=== PATIENT | female | born 1995 | race African-American/Black ===

== ENCOUNTER 2020-02-26 12:05 | Emergency (ER) | payer OTHER ==
[2020-02-26] MEDS ORDERED: Proparacaine 0.5% Ophth Soln 15 ML Bottle EYERT PRN (12:28)
[2020-02-26] MEDS ORDERED: Fluorescein 1 MG Ophth Strip EYERT ONE (12:28)
--- NOTE | 2020-02-26 12:28 | EDM.PDOC ---
ED HPI GENERAL MEDICAL PROBLEM - General Chief Complaint: General Stated Complaint: POSSIBLE CONCUSSION;BLURRED VISION Time Seen by Provider: 02/26/20 12:15 Source of Information: Reports: Patient History Limitations: Reports: No Limitations - History of Present Illness INITIAL COMMENTS - FREE TEXT/NARRATIVE: Patient comes emergency department today with concerns of a concussion and blurry vision. 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 She did not get knocked out. It struck her right on the right eye. She had some blurry vision to the right eye last night. As well as a mild headache. This morning when she got up she noticed again she had some blurry vision primarily of the right eye and none of the left eye. She has photophobia without phonophobia. Mild headache. Nausea without vomiting. No weakness dizziness lightheadedness. No vertigo or dizziness. No palpitations syncope. No chest pain or shortness of breath or difficulty breathing. No cough or congestion. No abdominal pain. No hematuria dysuria or urinary frequency. No paresthesias of her upper or lower extremities. No change in the functionality of her upper or lower extremities. No confusion or thought process change. No double vision. NO COVID expsoure no COVID symptoms. Headache Pain Score (Numeric/FACES): 5 - Related Data Allergies Allergy/AdvReac Type Severity Reaction Status Date / Time No Known Allergies Allergy Verified 02/26/20 12:26 Home Meds: Home Meds Ciprofloxacin [Ciloxan 0.3% Ophth Soln] 2 drop EYERT Q4H #1 bottle 02/26/20 [Rx] Past Medical History - Past Health History Medical/Surgical History: Denies Medical/Surgical History ED ROS GENERAL - Review of Systems Review Of Systems: Comprehensive ROS is negative, except as noted in HPI. ED EXAM, GENERAL - Physical Exam Exam: See Below Free Text/Narrative:: She is wearing sun glasses in the room when I enter. Appears in no acute distress. Exam Limited By: No Limitations General Appearance: Alert, WD/WN, No Apparent Distress Eye Exam: Bilateral Eye: EOMI, Normal Fundi, Normal Inspection, PERRL Ears: Normal External Exam, Normal TMs Nose: Normal Inspection, Normal Mucosa, No Blood Throat/Mouth: Normal Inspection, Normal Lips, Normal Voice Head: Atraumatic, Normocephalic. No: Facial Swelling, Facial Tenderness, Sinus Tenderness Neck: Normal Inspection, Supple, Non-Tender Respiratory/Chest: No Respiratory Distress, Lungs Clear, Normal Breath Sounds Cardiovascular: Normal Peripheral Pulses, Regular Rate, Rhythm GI/Abdominal: Normal Bowel Sounds, Soft, Non-Tender Back Exam: Normal Inspection Extremities: Normal Inspection, Normal Range of Motion, No Pedal Edema, Normal Capillary Refill Neurological: Alert, Oriented, CN II-XII Intact, Normal Cognition, Normal Gait, No Motor/Sensory Deficits Psychiatric: Normal Affect, Normal Mood Skin Exam: Warm, Dry, Intact, Normal Color, No Rash Course - Vital Signs Last Recorded V/S: Last Vital Signs Temp 97.9 F 02/26/20 12:10 Pulse 60 02/26/20 12:10 Resp 18 02/26/20 12:10 BP 127/62 02/26/20 12:10 Pulse Ox 99 02/26/20 12:10 - Orders/Labs/Meds Meds: Medications Discontinued Medications Generic Name Dose Route Start Last Admin Trade Name Paola PRN Reason Stop Dose Admin Fluorescein Sodium 1 mg 02/26/20 12:28 02/26/20 12:35 Ful-Thao EYERT 02/26/20 12:29 1 mg ONETIME ONE Administration Proparacaine HCl 1 ml 02/26/20 12:28 02/26/20 12:35 Proparacaine 0.5% Ophth Soln EYERT 1 drop ASDIRECTED PRN Administration Other - Re-Assessments/Exams Free Text/Narrative Re-Assessment/Exam: 02/26/20 13:50 There is no overt signs of trauma to the right orbit. There is no subcutaneous emphysema swelling bruising ecchymosis. The eye was anesthetized with proparacaine. Then the cornea was stained with fluorescein. Under a Ortega lamp examination saw a rather impressive corneal abrasion right over the iris. There is an area of a defined line without any abrasion about the width of a basketball ridging without abrasion although immediately next to this thin well demarcated line that traverse over about 1/2 of the cornea there is a mild abrasion equal on both sides of the line. Anterior chamber is unremarkable without hyphema. In my extemporaneously valuation this really appears like the ridging on the basketball causing the corneal abrasion. There is no other signs of trauma to the globe. The globe is intact. We will treat her with Cipro eyedrops pain medication. Normal sequelae and plan of care for a corneal abrasion was explained to her. She was comfortable with this plan and her questions were answered. I discussed the course of a concussion as well as postconcussion sequelae with her. Also the consideration for physical therapy if she continues to have postconcussion sequelae that are quite bothersome. Departure - Departure Time of Disposition: 12:38 Disposition: Home, Self-Care 01 Clinical Impression: Corneal abrasion, right Qualifiers: Encounter type: initial encounter Qualified Code(s): S05.01XA - Injury of conjunctiva and corneal abrasion without foreign body, right eye, initial encounter Brain concussion Qualifiers: Encounter type: initial encounter Loss of consciousness presence/duration: without LOC Qualified Code(s): S06.0X0A - Concussion without loss of consciousness, initial encounter - Discharge Information Prescriptions: Ciprofloxacin [Ciloxan 0.3% Ophth Soln] 2 drop EYERT Q4H #1 bottle Instructions: Concussion, Adult, [id number], Corneal Abrasion, [id number], Head Injury, Adult, [id number] Referrals: PCP,Not In Area [Primary Care Provider] - Forms: ED Department Discharge Additional Instructions: Tylenol and or Ibuprofen as needed for headache pain. No contact lenses. Home rest your brain from lights sounds stimulation. Cipro eye drops 2 drops to the right eye four times a day for the next 5 days. [facility] has the prescription sent electronically. You should have 90% improvement in 24 hours and 100% improvement in 48 hours. If that is not occurring recheck with optometry. Return to the ED if new or worsening symptoms. Consider Physical therapy for the treatment of your concussion as well. Sepsis Event Note (ED) - Evaluation Sepsis Screening Result: No Definite Risk - Focused Exam Vital Signs: Vital Signs Temp Pulse Resp BP Pulse Ox 02/26/20 12:10 97.9 F 60 18 127/62 99
== END 2020-02-26 12:47 | disposition home or self-care (01) ==
LOC: VM.ED 12:05
DX: S06.0X0A Concussion without loss of consciousness, initial encounter (principal); S05.01XA Injury of conjunctiva and corneal abrasion without foreign body, right eye, initial encounter; W21.05XA Struck by basketball, initial encounter; Y93.67 Activity, basketball; Y92.214 College as the place of occurrence of the external cause
CPT/HCPCS: 99283